=== PATIENT | female | born 1980 ===

== ENCOUNTER 2023-04-29 22:40 | Emergency (ER) | payer MEDICAID, SELFPAY ==
--- NOTE | ~2023-04-29 | XR_ITS ---
EXAMINATION: XR SHOULDER, RIGHT CLINICAL INFORMATION: Shoulder pain COMPARISON: None available. TECHNIQUE: Three views of the right shoulder. FINDINGS: No fracture. Glenohumeral and acromioclavicular alignment is anatomic with normal joint space. Calcification in the region of the acromioclavicular joint, nonspecific radiographically. No abnormal soft tissue calcifications. XR/XR shoulder RT min 2V IMPRESSION: No acute fracture or dislocation.
[2023-04-29 22:45] VITALS: BP 154/93; PULSE 98; RESP 16; TEMP 37.6; O2SAT 99; BMI 39.3
[2023-04-29 23:21] VITALS: BP 147/90; PULSE 101; O2SAT 98
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
[2023-04-29] MEDS: oxyCODONE HCl Immed Release 5 MG TABLET PO (23:51)
[2023-04-29 23:56] VITALS: BP 144/96; PULSE 72; RESP 16; TEMP 37.4; O2SAT 100
[2023-04-30 00:43] VITALS: BP 139/76; PULSE 97; RESP 16; TEMP 37.7; O2SAT 98
== END 2023-04-30 01:08 | disposition home or self-care (01) ==
PROVIDERS: Emergency Provider Emergency Medicine Emergency Medical Services
DX: M25.511 Pain in right shoulder (principal); M54.2 Cervicalgia
CPT/HCPCS: 73030; 99283; 99285